=== PATIENT | male | born 1985 | race Caucasian/White ===

== ENCOUNTER 2024-09-12 03:01 | Emergency (ER) | payer BC ==
[2024-09-12] MEDS ORDERED: Ketorolac Tromethamine 30 MG (1 mL) VIAL ONE (03:22)
[2024-09-12 03:32] LABS: #Basophils 0.05 10x3/uL (0.0-0.2); #Eosinophils 0.12 10x3/uL (0.0-0.5); #Monocytes 1.03 10x3/uL (0.0-1.1); #Neutrophils 5.79 10x3/uL (1.5-8.4); %Basophils 0.6 % (0.0-2.0); %Eosinophils 1.4 % (0.0-6.0); %Lymphocytes 17.8 % (18.0-47.0); %Monocytes 12.1 % (0.0-10.0); %Neutrophils 67.9 % (40.0-75.0); Hematocrit 43.7 % (38.8-50.0); Hemoglobin 15.5 g/dL (13.5-17.5); Mean Corpuscular HGB CONC 35.5 g/dL (32.0-36.0); Mean Corpuscular Hemoglobin 29.2 pg (27.0-33.0); Mean Corpuscular Volume 82.5 fL (81.2-95.1); Mean Platelet Volume 11.1 fL (7.4-10.4); Platelet Count 169 10x3/uL (150-450); RBC Distribution Width 12.6 % (11.5-14.5); White Blood Cell (WBC) Count 8.53 10x3/uL (3.5-10.5)
[2024-09-12 03:49] LABS: ALT (SGPT) 35 U/L (Less than 45); AST (SGOT) 60 U/L (11-34); Albumin 3.8 g/dL (3.1-4.5); Alkaline Phosphatase 104 U/L (40-110); Anion Gap 15 mmol/L (10-20); BUN (Urea Nitrogen) 10 mg/dL (8.9-20.6); Bilirubin, Total 0.6 mg/dL (0.3-1.2); Calc. Creatinine Clearance 0 mL/min (70-130); Calcium 9.1 mg/dL (7.8-10.44); Carbon Dioxide 22 mmol/L (22-29); Chloride 101 mmol/L (98-107); Estimated GFR 111; Globulin 3.4 g/dL (2.4-3.5); Glucose 304 mg/dL (70-105); Magnesium 2.1 mg/dL (1.6-2.6); Protein, Total 7.2 g/dL (6.0-8.3); Sodium 134 mmol/L (136-145)
[2024-09-12] MEDS ORDERED: Aspirin Chewable 81 MG TAB ONE (03:54)
[2024-09-12 03:56] LABS: Critical Call Chem Troponin I ERS.WJM @0356
[2024-09-12] MEDS ORDERED: Heparin 10,000 UNITS/ 10 ML VIAL ONE (04:08)
[2024-09-12] MEDS ORDERED: Heparin 25,000 units/D5W 500 ML ONE (04:08)
[2024-09-12] MEDS ORDERED: Morphine 4 MG/ML VIAL ONE (04:08)
== END 2024-09-12 04:36 ==
LOC: CSHERS 03:01
DX: I21.4 Non-ST elevation (NSTEMI) myocardial infarction (principal); E11.9 Type 2 diabetes mellitus without complications; E78.1 Pure hyperglyceridemia; Z79.899 Other long term (current) drug therapy
CPT/HCPCS: 71045; 80053; 83735; 83880; 84484; 85025; 85379; 93005; 96374; 96375; 96376; J1644; J1885; J2270